=== PATIENT | male | born 1965 | race Caucasian/White ===

== ENCOUNTER 2019-02-25 15:04 | Outpatient (CLI) | payer OTHER ==
--- NOTE | 2019-02-25 16:24 | CT ---
CT Chest W Con History: Chest pain Comparison: None. Findings: Lungs are clear. No pneumothorax. No effusion. No suspicious pulmonary nodule. No pericardial effusion. Thyroid is unremarkable. Aortic contour is normal. Limited evaluation of the upper abdomen is unremarkable. 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 No axillary or internal mammary adenopathy. Sternum and manubrium are intact. Nonobstructive left sup erior renal calculus, punctate. Impression: 1. Normal CT examination of the chest. 2. Nonobstructive punctate left renal calculus. 3. 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
== END 2019-02-25 15:05 | disposition home or self-care (01) ==
LOC: SCSCT 15:04
PROVIDERS: ATTEND Internal Medicine Cardiovascular Disease
DX: R07.9 Chest pain, unspecified (principal); N20.0 Calculus of kidney
CPT/HCPCS: 71260

== ENCOUNTER 2021-04-04 17:00 | Outpatient (CLI) | payer OTHER | END 2021-04-04 17:01 | disposition home or self-care (01) | LOC: SLEEPLAB 17:00 | PROVIDERS: ATTEND Internal Medicine | DX: G47.33 Obstructive sleep apnea (adult) (pediatric) (principal); R53.83 Other fatigue; R51.9 Headache, unspecified; E66.9 Obesity, unspecified; I10 Essential (primary) hypertension; Z68.37 Body mass index [BMI] 37.0-37.9, adult | CPT/HCPCS: 95806 ==

== ENCOUNTER 2021-04-23 19:30 | Outpatient (CLI) | payer OTHER | END 2021-04-23 19:31 | disposition home or self-care (01) | LOC: SLEEPLAB 19:30 | PROVIDERS: ATTEND Internal Medicine | DX: G47.33 Obstructive sleep apnea (adult) (pediatric) (principal); R51.9 Headache, unspecified; R53.83 Other fatigue; I10 Essential (primary) hypertension; K50.90 Crohn's disease, unspecified, without complications; E66.9 Obesity, unspecified; Z68.37 Body mass index [BMI] 37.0-37.9, adult | CPT/HCPCS: 95811 ==

== ENCOUNTER 2021-08-27 07:27 | Outpatient (CLI) | payer OTHER ==
[2021-08-27] MEDS ORDERED: Gadobenate Dimeglumine 529 MG/1 ML (20ML VIAL) ONE (08:00)
== END 2021-08-27 07:28 | disposition home or self-care (01) ==
LOC: BICMRI 07:27
PROVIDERS: ATTEND Specialist
DX: R42 Dizziness and giddiness (principal)
CPT/HCPCS: 70553; A9577

== ENCOUNTER 2021-12-20 13:18 | Outpatient (CLI) | payer OTHER | END 2021-12-20 13:19 | disposition home or self-care (01) | LOC: SCSRAD 13:18 | PROVIDERS: ATTEND Chiropractor | DX: M46.03 Spinal enthesopathy, cervicothoracic region (principal) | CPT/HCPCS: 72040 ==